=== PATIENT | female | born 1975 | race Caucasian/White ===

== ENCOUNTER 2023-06-30 17:13 | Inpatient (IN) | payer BC ==
[2023-06-30] MEDS ORDERED: HALOPERIDOL LACTATE 5 MG/ML 1 ML VIAL IM PRN (20:23)
[2023-06-30] MEDS ORDERED: LORazepam 2 MG/ML INJ IM PRN (20:23)
[2023-06-30] MEDS: haloperidoL 5 MG TAB PO PRN (20:38)
[2023-06-30] MEDS: LORazepam 1 MG TAB PO PRN (20:38)
[2023-07-01] MEDS: NICOTINE 14MG/24HR PATCH TRANSDERM SCH (08:35)
[2023-07-01] MEDS: MAGNESIUM HYDROXIDE 2,400 MG/30 ML CUP PO PRN (13:29)
[2023-07-01] MEDS: DOCUSATE 100 MG CAP PO SCH (13:41)
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
[2023-07-01] MEDS: PALIPERIDONE 3 MG TAB.ER.24 PO SCH ×2 (14:51→20:46)
[2023-07-01] MEDS: guaiFENesin 600 MG TABLET.ER PO SCH ×2 (14:51→20:45)
[2023-07-01] MEDS: DOXYCYCLINE 100 MG CAP PO SCH ×2 (14:52→20:44)
[2023-07-01] MEDS: MUPIROCIN 2% OINT 22 GM TUBE TOPICAL SCH ×2 (15:19→20:46)
[2023-07-01] MEDS ORDERED: IPRATROPIUM-ALBUTEROL 3 ML NEB INHALATION SCH (16:00)
[2023-07-01] MEDS: ALBUTEROL HFA INHALER INHALATION SCH ×2 (17:19→21:18)
[2023-07-01] MEDS: diphenhydrAMINE 25 MG CAP PO SCH (20:44)
[2023-07-01] MEDS: IBUPROFEN 600 MG TAB PO PRN (20:49)
[2023-07-02] MEDS: ALBUTEROL HFA INHALER INHALATION SCH ×4 (04:48→20:19)
[2023-07-02] MEDS: IBUPROFEN 600 MG TAB PO PRN ×3 (05:03→21:31)
[2023-07-02] MEDS: LORazepam 1 MG TAB PO PRN ×2 (05:03→20:23)
[2023-07-02] MEDS: DOXYCYCLINE 100 MG CAP PO SCH (08:46)
[2023-07-02] MEDS: guaiFENesin 600 MG TABLET.ER PO SCH ×3 (08:46→21:10)
[2023-07-02] MEDS: DOCUSATE 100 MG CAP PO SCH (08:46)
[2023-07-02] MEDS: PALIPERIDONE 3 MG TAB.ER.24 PO SCH ×2 (08:46→20:20)
[2023-07-02] MEDS: NICOTINE 14MG/24HR PATCH TRANSDERM SCH (08:47)
[2023-07-02] MEDS: MUPIROCIN 2% OINT 22 GM TUBE TOPICAL SCH ×3 (08:47→20:20)
[2023-07-02] MEDS: lamoTRIgine 25 MG TAB PO SCH ×2 (11:28→20:20)
[2023-07-02] MEDS: diphenhydrAMINE 25 MG CAP PO PRN ×2 (11:28→18:33)
--- NOTE | 2023-07-02 11:31 | P.PN ---
Progress Note - Text Progress Note Date: 07/02/23 Interval History: Patient was seen [wandering the hallways] and was directable and agreeable to speak with television script writer in the office. [] Patient appeared to be fairly labile and tearful today. She claims that she needs "more Kleenex" due to the crying. States that she is doing a bit better today however was having some visual disturbances this morning. She claims that she has been having some itching over where her infection was and requested Benadryl. States that she slept fairly last night. She is agreeable to continue with the medications. She claims that she didn't take Lamictal in the past and is okay to take it again for mood stabilization. Claims that she is feeling depressed however when asked more about it she made several statements was rambling and bizarre. She appeared fairly poor concentration today and needed to be redirected in conversation several times. At this time patient denies any suicidal or homical ideations, intent or plan. Patient denies any current auditory, visual hallucinations and denies any paranoia or delusions. Patient denies any side effects from the medications and has been compliant with meds. Mental Status Exam: General Appearance: Patient appears to be tall, currently long hair, stated age is alert, directable, and attempts to cooperate. Bizarre at times. Patient appears to have poor hygiene and grooming. Behavior: Patient is seated without any agitated behavior. [place] friendly, bizarre times. tearful Speech: Patient's speech is fluent and nonpressured. Rambles at times. Mood/Affect: Patient reports their mood is "sad", affect is congruent Suicidality/Homicidality: Patient denies having any homicidal ideation intent or plan. Denies any suicidal ideations intent or plan Perceptions: Patient denies any visual hallucinations and denies any auditory hallucinations Though content/process: Rambles at times, tangential, bizarre, not endorsing any delusion or paranoia at this time. Minimal insight. rambles Memory and concentration: AOX3, grossly intact for the purposes of this session Judgment and insight: poor, improving mildly IMPRESSIONS: psychosis NOS, likely schizoaffective vs schizophrenia cannabis use disorder nicotine dependence PLAN: -Patient is admitted under involuntary status to MHU for stabilization of psychiatric symptoms and safety. Patient has not signed adult voluntary form and medication consent and is placed in patient's chart. -Medications : paliperidone by mouth 3 mg twice a day for mood stabilization/psychosis, Benadryl 25 mg daily at bedtime for insomnia. added lamictal 25 mg bid for mood stabilization -Ativan and Haldol PRN for agitation/aggression -NRT - nicotine patch -SW on board for discharge planning. Encourage patient to participate in groups to work on coping skills. continuing to await deferral and court date.
[2023-07-02] MEDS: diphenhydrAMINE 25 MG CAP PO SCH (20:20)
[2023-07-02] MEDS: MAG HYDROX/AL HYDROX/SIMETH 30 ML CUP PO PRN (22:11)
[2023-07-03] MEDS: MUPIROCIN 2% OINT 22 GM TUBE TOPICAL SCH ×3 (06:41→18:45)
[2023-07-03] MEDS: ALBUTEROL HFA INHALER INHALATION SCH ×4 (07:22→19:59)
[2023-07-03] MEDS: diphenhydrAMINE 25 MG CAP PO PRN ×2 (07:24→21:08)
[2023-07-03] MEDS: IBUPROFEN 600 MG TAB PO PRN ×2 (07:28→13:46)
[2023-07-03] MEDS: NICOTINE 14MG/24HR PATCH TRANSDERM SCH (07:44)
[2023-07-03] MEDS: PALIPERIDONE 3 MG TAB.ER.24 PO SCH (07:45)
[2023-07-03] MEDS: lamoTRIgine 25 MG TAB PO SCH ×3 (07:45→20:53)
[2023-07-03] MEDS: DOCUSATE 100 MG CAP PO SCH (07:45)
[2023-07-03] MEDS: guaiFENesin 600 MG TABLET.ER PO SCH ×2 (07:45→20:01)
[2023-07-03] MEDS: LORazepam 1 MG TAB PO PRN ×2 (09:57→21:08)
[2023-07-03] MEDS: haloperidoL 5 MG TAB PO PRN (09:58)
--- NOTE | 2023-07-03 11:40 | P.HPMEDMHU ---
History of Present Illness H&P Date: 07/03/23 Patient is a 38-year-old female with alcohol use disorder, nicotine dependence, borderline personality disorder currently in behavioral health unit. [facility] physicians has been consulted for medical management. Denies any chest pain, shortness of breath, abdominal pain, nausea, vomiting, diarrhea, constipation, or urinary complaints. Pertinent positives and negatives as discussed in HPI, a complete review of systems was performed and all other systems are negative. Patient seen and examined at bedside. Vital signs reviewed General: nontoxic, no distress, appears at stated age Derm: warm, dry Head: atraumatic, normocephalic, symmetric Eyes: EOMI, no lid lag, anicteric sclera, pupils equal round reactive to light ENT: Nose and ears atraumatic Neck: No thyromegaly, supple Mouth: no lip lesion, mucus membranes moist Cardiovascular: S1S2 reg, no murmur, no edema Lungs: clear to auscultation bilateral, no rhonchi, no rales, no wheeze, no accessory muscle use Abdominal: soft, nontender to palpation, no guarding, no appreciable organomegaly Ext: no gross muscle atrophy, muscle strength muscle strength 5 out of 5 in all 4 extremities, no contractures Neuro: CN II-XII grossly intact Psych: Alert, oriented, appropriate affect Assessment/Plan: Alcohol use disorder Nicotine dependence Psychotic disorder -Counseled regarding cessation of alcohol, and nicotine -Rest of the management per psychiatry -No labs available Thank you for allowing us to participate in the care of this pleasant patient. Do not hesitate to contact us with questions. Someone can be reached from the [facility] hospitalist group all hours of the day at [phone] or via [employer] - [place]. Past Medical History Past Medical History: Unable to Obtain Additional Past Medical History / Comment(s): Acute psychosis History of Any Multi-Drug Resistant Organisms: MRSA Date of last positivie culture/infection: 06/30/23 MDRO Source:: Neck wound Past Surgical History: Unable to Obtain Additional Past Surgical History / Comment(s): Acute psychosis Past Anesthesia/Blood Transfusion Reactions: No Reported Reaction Past Psychological History: No Psychological Hx Reported Smoking Status: Current some day smoker Medications and Allergies Allergies Allergy/AdvReac Type Severity Reaction Status Date / Time No Known Allergies Allergy Verified 06/30/23 20:23 Physical Exam Vitals: Vital Signs Temp Pulse Resp BP Pulse Ox 07/03/23 07:12 98.5 F 79 19 106/59 98 Cranial Nerve Examination - Cranial Nerves Cranial Nerve II- Optic: Intact Cranial Nerve III- Oculomotor: Intact Cranial Nerve IV- Trochlear: Intact Cranial Nerve V- Trigeminal: Intact Cranial Nerve - Abducens: Intact Cranial Nerve VII- Facial: Intact Cranial Nerve VIII- Auditory: Intact Cranial Nerve IX- Glossopharyngeal: Intact Cranial Nerve X- Vagus: Intact Cranial Nerve XI- Accessory: Intact Cranial Nerve XII- Hypoglossal: Intact Thrombosis Risk Factor Assmnt - Choose All That Apply Each Factor Represents 1 point: Age 41-60 years, Obesity (BMI >25) Other Risk Factors: No Other congenital or acquired thrombophilia - If yes, enter type in comment: No Thrombosis Risk Factor Assessment Total Risk Factor Score: 2 Thrombosis Risk Factor Assessment Level: Low Risk
--- NOTE | 2023-07-03 14:40 | P.PN ---
Progress Note - Text Progress Note Date: 07/03/23 Interval History: Patient was seen [wandering the hallways] and was directable and agreeable to speak with junior technical writer in the office. [] Vision states that she has been going to groups however was fairly vague about what she is learning. She appeared to be less labile today during conversation, answered questions mildly more appropriately however was still bizarre in some of her responses. She is denying any more visual hallucinations or any other hallucinations. States that she slept fairly last night. She is agreeable to continue with the medications and asked more questions about her medications and side effects. she made several statements was rambling and bizarre however was mildly more directable today. She appeared fairly improving concentration today. At this time patient denies any suicidal or homical ideations, intent or plan. Patient denies any current auditory, visual hallucinations and denies any paranoia or delusions. Patient denies any side effects from the medications and has been compliant with meds. Mental Status Exam: General Appearance: Patient appears to be tall, currently long hair, stated age is alert, directable, and attempts to cooperate. Bizarre at times. Patient appears to have poor hygiene and grooming. Behavior: Patient is seated without any agitated behavior. [place] friendly, bizarre times. Improving mildly Speech: Patient's speech is fluent and nonpressured. Rambles less Mood/Affect: Patient reports their mood is "ok", affect is congruent Suicidality/Homicidality: Patient denies having any homicidal ideation intent or plan. Denies any suicidal ideations intent or plan Perceptions: Patient denies any visual hallucinations and denies any auditory hallucinations Though content/process:tangential, bizarre, not endorsing any delusion or paranoia at this time. Minimal insight. rambles, improving mildly Memory and concentration: AOX3, grossly intact for the purposes of this session Judgment and insight: poor, improving mildly IMPRESSIONS: psychosis NOS, likely schizoaffective vs schizophrenia cannabis use disorder nicotine dependence PLAN: -Patient is admitted under involuntary status to MHU for stabilization of psychiatric symptoms and safety. Patient has not signed adult voluntary form and medication consent and is placed in patient's chart. -Medications : increase paliperidone by mouth 3 mg QHS + 6 mg daily for mood stabilization/psychosis, Benadryl 25 mg daily at bedtime for insomnia. increase lamictal 25 mg tid for mood stabilization and continue increasing over the weekend if tolerated and needed. -Ativan and Haldol PRN for agitation/aggression -NRT - nicotine patch -SW on board for discharge planning. Encourage patient to participate in groups to work on coping skills. continuing to await deferral, court date set for next thursday. hopeful for discharge early next week if patient signs deferral and is agreeable to continue on with treatment.
[2023-07-03] MEDS: MAGNESIUM HYDROXIDE 2,400 MG/30 ML CUP PO PRN (18:48)
[2023-07-03] MEDS: diphenhydrAMINE 25 MG CAP PO SCH (20:00)
[2023-07-03] MEDS: PALIPERIDONE 6 MG TAB.ER.24 PO SCH (20:02)
[2023-07-04] MEDS: DOCUSATE 100 MG CAP PO SCH (07:56)
[2023-07-04] MEDS: NICOTINE 14MG/24HR PATCH TRANSDERM SCH (07:56)
[2023-07-04] MEDS: lamoTRIgine 25 MG TAB PO SCH ×3 (07:56→21:26)
[2023-07-04] MEDS: PALIPERIDONE 3 MG TAB.ER.24 PO SCH (07:56)
[2023-07-04] MEDS: guaiFENesin 600 MG TABLET.ER PO SCH ×2 (07:56→20:11)
[2023-07-04] MEDS: ALBUTEROL HFA INHALER INHALATION SCH ×4 (07:57→21:25)
[2023-07-04] MEDS: IBUPROFEN 600 MG TAB PO PRN ×2 (08:46→14:32)
[2023-07-04] MEDS: MAGNESIUM HYDROXIDE 2,400 MG/30 ML CUP PO PRN (08:48)
[2023-07-04] MEDS: MUPIROCIN 2% OINT 22 GM TUBE TOPICAL SCH ×3 (09:33→21:26)
[2023-07-04] MEDS: diphenhydrAMINE 25 MG CAP PO PRN ×2 (11:40→16:12)
[2023-07-04] MEDS: LORazepam 1 MG TAB PO PRN ×2 (12:19→20:13)
--- NOTE | 2023-07-04 18:48 | P.PN ---
Progress Note - Text Progress Note Date: 07/04/23 Interval history: Patient was seen isolating to her room and was directable and agreeable to speak with investigative writer. She denies rash from Lamictal. She reports good mood, sleep and appetite. At this time patient denies any suicidal or homicidal ideations intent or plan. Denies any auditory or visual hallucinations. Patient denies any side effects from the medications and has been compliant with meds. Mental status exam: General Appearance: Patient appears to be stated age is alert, directable, and cooperative. Behavior: No agitated behavior. Patient is calm and directable Speech: Patient's speech is fluent and non-pressured. Mood/Affect: Mood is improving mildly, affect is congruent and constricted. Suicidality/Homicidality: Patient denies having any suicidal or homicidal ideation intent or plan. Perceptions: Patient denies any auditory or visual hallucinations. Though content/process: There is no evidence of any delusional thought content and thought process is linear and goal-directed. Memory and concentration: AOX3, grossly intact for the purposes of this session Judgment and insight: improving mildly Assessment/Plan: Continue with current diagnosis. Patient continues to meet criteria for inpatient psychiatric admission for symptom stabilization and safety. Patient will be maintained on current psychotropic medication regimen. Monitor for medication compliance and for any psychotropic medication side effects. Will continue to monitor ongoing response to treatment. Encouraged participation in milieu.
[2023-07-04] MEDS: diphenhydrAMINE 25 MG CAP PO SCH (20:14)
[2023-07-04] MEDS: PALIPERIDONE 6 MG TAB.ER.24 PO SCH (20:14)
[2023-07-04] MEDS: ACETAMINOPHEN TAB 325 MG TAB PO PRN (21:36)
[2023-07-04] MEDS: MAG HYDROX/AL HYDROX/SIMETH 30 ML CUP PO PRN (21:37)
[2023-07-04] MEDS: haloperidoL 5 MG TAB PO PRN (21:37)
[2023-07-05] MEDS: LORazepam 1 MG TAB PO PRN ×3 (01:16→21:56)
[2023-07-05] MEDS: ALBUTEROL HFA INHALER INHALATION SCH ×4 (07:55→21:24)
[2023-07-05] MEDS: NICOTINE 14MG/24HR PATCH TRANSDERM SCH (07:55)
[2023-07-05] MEDS: PALIPERIDONE 3 MG TAB.ER.24 PO SCH (07:56)
[2023-07-05] MEDS: guaiFENesin 600 MG TABLET.ER PO SCH ×2 (07:56→21:23)
[2023-07-05] MEDS: MUPIROCIN 2% OINT 22 GM TUBE TOPICAL SCH ×3 (07:56→22:35)
[2023-07-05] MEDS: DOCUSATE 100 MG CAP PO SCH (07:56)
[2023-07-05] MEDS: lamoTRIgine 25 MG TAB PO SCH ×3 (07:56→21:23)
[2023-07-05] MEDS: diphenhydrAMINE 25 MG CAP PO PRN ×3 (09:02→21:23)
[2023-07-05] MEDS: IBUPROFEN 600 MG TAB PO PRN ×2 (13:54→22:43)
[2023-07-05] MEDS: MAGNESIUM HYDROXIDE 2,400 MG/30 ML CUP PO PRN (13:55)
[2023-07-05] MEDS: ACETAMINOPHEN TAB 325 MG TAB PO PRN (16:31)
--- NOTE | 2023-07-05 19:40 | P.PN ---
Progress Note - Text Progress Note Date: 07/05/23 Interval history: Patient was seen socializing with peer in the lounge, then later isolating to her room, and was directable and agreeable to speak with investment underwriter. She denies rash from Lamictal. She reports good mood, sleep and appetite. At this time patient denies any suicidal or homicidal ideation, intent or plan. Denies any auditory or visual hallucinations. Patient denies any side effects from the medications and has been compliant with meds. Mental status exam: General Appearance: Patient appears to be stated age is alert, directable, and cooperative. Behavior: No agitated behavior. Patient is calm and directable Speech: Patient's speech is fluent and non-pressured. Mood/Affect: Mood is improving, affect is bright and reactive. Suicidality/Homicidality: Patient denies having any suicidal or homicidal ideation intent or plan. Perceptions: Patient denies any auditory or visual hallucinations. Though content/process: There is no evidence of any delusional thought content and thought process is linear and goal-directed. Memory and concentration: AOX3, grossly intact for the purposes of this session Judgment and insight: improving mildly Assessment/Plan: Continue with current diagnosis. Patient continues to meet criteria for inpatient psychiatric admission for symptom stabilization and safety. Patient will be maintained on current psychotropic medication regimen. Monitor for medication compliance and for any psychotropic medication side effe cts. Will continue to monitor ongoing response to treatment. Encouraged participation in milieu. Per Dr. Rodriguez's note, patient is awaiting court deferral, court date set for Thursday.
[2023-07-05] MEDS: PALIPERIDONE 6 MG TAB.ER.24 PO SCH (21:23)
[2023-07-05] MEDS: diphenhydrAMINE 25 MG CAP PO SCH (21:26)
[2023-07-06] MEDS: PALIPERIDONE 3 MG TAB.ER.24 PO SCH ×2 (08:23→20:08)
[2023-07-06] MEDS: DOCUSATE 100 MG CAP PO SCH (08:23)
[2023-07-06] MEDS: lamoTRIgine 25 MG TAB PO SCH ×3 (08:23→20:08)
[2023-07-06] MEDS: NICOTINE 14MG/24HR PATCH TRANSDERM SCH (08:23)
[2023-07-06] MEDS: guaiFENesin 600 MG TABLET.ER PO SCH ×2 (08:23→20:07)
[2023-07-06] MEDS: MUPIROCIN 2% OINT 22 GM TUBE TOPICAL SCH ×3 (08:24→20:09)
[2023-07-06] MEDS: ALBUTEROL HFA INHALER INHALATION SCH ×4 (08:24→20:06)
[2023-07-06] MEDS: diphenhydrAMINE 25 MG CAP PO PRN ×4 (08:46→23:25)
[2023-07-06] MEDS: IBUPROFEN 600 MG TAB PO PRN ×3 (08:46→21:13)
[2023-07-06] MEDS: ACETAMINOPHEN TAB 325 MG TAB PO PRN (10:37)
--- NOTE | 2023-07-06 14:14 | P.PN ---
Progress Note - Text Progress Note Date: 07/06/23 Interval history: Patient was seen isolating in her room, talking to herself, is agreeable to speak with this selling underwriter. Her affect is bright but odd. She claims she is feeling "on point", however with further discussion she appears to ramble with loose associations. She states "It's an emergency, I have to save my own life" and flips to paper about patient rights, but is not able to elaborate on what she means. She admits she talks to herself "alot", states she does this because she has kids, dialogue becomes nonsensical. She denies rash from Lamictal. She reports good mood, and appetite. She reports difficulty sleeping last night and so she took an Ativan 1mg po. At this time patient denies any suicidal or homicidal ideation, intent or plan. Denies any auditory or visual hallucinations, but appears to be attending to internal stimuli at times. Patient denies any side effects from the medications and has been compliant with meds. Mental status exam: General Appearance: Patient appears to be stated age is alert, directable, and cooperative. Behavior: No agitated behavior. Patient is calm and directable Speech: Patient's speech is fluent and non-pressured. Mood/Affect: Mood is improving, affect is bright but odd. Suicidality/Homicidality: Patient denies having any suicidal or homicidal ideation intent or plan. Perceptions: Patient denies any auditory or visual hallucinations, but appears to attend to internal stimuli. Though content/process: There is no evidence of any overt delusional thought content and thought process is rambling and nonsensical at times today. Memory and concentration: AOX3, grossly intact for the purposes of this session Judgment and insight: improving mildly Assessment/Plan: Continue with current diagnosis. Patient continues to meet criteria for inpatient psychiatric admission for symptom stabilization and safety. Increase Invega from 3 mg daily and 6 mg QHS, to 3 mg daily in the morning and 9 mg QHS for psychosis/mood stabilization. She would benefit from long-acting injectable Invega Sustenna. Continue gradual titration of Lamictal 25 mg TID to minimize risk of SJS. Monitor for medication compliance and for any psychotropic medication side effects. Will continue to monitor ongoing response to treatment. Encouraged participation in milieu. Per Dr. Rodriguez's note, patient is awaiting court deferral, court date set for Thursday.
[2023-07-06] MEDS: MAG HYDROX/AL HYDROX/SIMETH 30 ML CUP PO PRN (14:34)
[2023-07-06] MEDS: MAGNESIUM HYDROXIDE 2,400 MG/30 ML CUP PO PRN (16:22)
[2023-07-06] MEDS: diphenhydrAMINE 25 MG CAP PO SCH (20:08)
[2023-07-06] MEDS: LORazepam 1 MG TAB PO PRN (21:13)
[2023-07-07] MEDS: NICOTINE 14MG/24HR PATCH TRANSDERM SCH (07:40)
[2023-07-07] MEDS: lamoTRIgine 25 MG TAB PO SCH ×3 (07:40→20:36)
[2023-07-07] MEDS: guaiFENesin 600 MG TABLET.ER PO SCH ×2 (07:40→20:35)
[2023-07-07] MEDS: ALBUTEROL HFA INHALER INHALATION SCH ×4 (07:41→20:33)
[2023-07-07] MEDS: PALIPERIDONE 3 MG TAB.ER.24 PO SCH ×2 (07:43→20:36)
[2023-07-07] MEDS: MUPIROCIN 2% OINT 22 GM TUBE TOPICAL SCH ×3 (08:42→20:38)
[2023-07-07] MEDS: diphenhydrAMINE 25 MG CAP PO PRN ×2 (08:43→14:51)
[2023-07-07] MEDS: DOCUSATE 100 MG CAP PO SCH (08:50)
[2023-07-07] MEDS: MAG HYDROX/AL HYDROX/SIMETH 30 ML CUP PO PRN (09:18)
--- NOTE | 2023-07-07 15:17 | P.PN ---
Progress Note - Text Progress Note Date: 07/07/23 Interval history: Patient was seen walking in the hallways and is agreeable to speak with this securities underwriter. She is still displaying some signs of indira. Her affect is bright and a bit odd. Her thought process is improving slightly however she continues to change topics frequently with flight of ideas. She reports feeling better on the higher dose of Invega today, however she only slept one hour last night, appears anxious about her upcoming court date tomorrow. She denies rash from Lamictal but reports she has had a rash from Lamictal in the past so this will need to be titrated slowly. At this time patient denies any suicidal or homicidal ideation, intent or plan. Denies any auditory or visual hallucinations, but admits to talking to herself at times. Patient denies any side effects from the medications. Mental status exam: General Appearance: Patient appears to be stated age, is showered and dressed appropriately. Behavior: No agitated behavior. Patient presents as smiling and calm, but still has signs and symptoms of indira including insomnia. Speech: Patient's speech is fluent and non-pressured. Mood/Affect: Mood is improving, affect is bright but odd. Suicidality/Homicidality: Patient denies having any suicidal or homicidal ideation intent or plan. Perceptions: Patient denies any auditory or visual hallucinations, but appears to talk to herself. Though content/process: There is no evidence of any overt delusional thought content and thought process has flight of ideas with frequent change of topics. Memory and concentration: AOX3, grossly intact for the purposes of this session Judgment and insight: limited Assessment/Plan: Continue with current diagnosis. Patient continues to meet criteria for inpatient psychiatric admission for symptom stabilization and safety. Continue Invega 3 mg daily in the morning and 9 mg QHS for psychosis/mood stabilization. She would benefit from long-acting injectable Invega Sustenna. She may benefit from a second antipsychotic or mood stabilizer for mood stabilization however she prefers to not add any additional medications at this time. Continue gradual titration of Lamictal 25 mg TID to minimize risk of SJS. She reports a history of rash on Lamictal in the past so will titrate this slowly. Monitor for medication compliance and for any psychotropic medication side effects. Will continue to monitor ongoing response to treatment. Encouraged participation in milieu. Per Dr. Rodriguez's note, patient is awaiting court deferral, court date set for Thursday.
[2023-07-07] MEDS: IBUPROFEN 600 MG TAB PO PRN (20:35)
[2023-07-07] MEDS: diphenhydrAMINE 25 MG CAP PO SCH (20:36)
[2023-07-07] MEDS: LORazepam 1 MG TAB PO PRN (20:37)
[2023-07-08] MEDS: diphenhydrAMINE 25 MG CAP PO PRN ×2 (01:37→11:51)
[2023-07-08] MEDS: IBUPROFEN 600 MG TAB PO PRN ×2 (06:39→11:52)
[2023-07-08] MEDS: ALBUTEROL HFA INHALER INHALATION SCH ×4 (08:29→21:31)
[2023-07-08] MEDS: PALIPERIDONE 3 MG TAB.ER.24 PO SCH ×2 (08:30→21:33)
[2023-07-08] MEDS: guaiFENesin 600 MG TABLET.ER PO SCH ×2 (08:30→21:31)
[2023-07-08] MEDS: MUPIROCIN 2% OINT 22 GM TUBE TOPICAL SCH ×3 (08:30→21:33)
[2023-07-08] MEDS: lamoTRIgine 25 MG TAB PO SCH ×2 (08:30→21:32)
[2023-07-08] MEDS: NICOTINE 14MG/24HR PATCH TRANSDERM SCH (08:31)
[2023-07-08] MEDS: DOCUSATE 100 MG CAP PO SCH (08:38)
[2023-07-08] MEDS: ACETAMINOPHEN TAB 325 MG TAB PO PRN (13:38)
[2023-07-08] MEDS ORDERED: OLANZapine ODT 5 MG TAB PO STA (13:42)
--- NOTE | 2023-07-08 15:56 | P.PN ---
Progress Note - Text Progress Note Date: 07/08/23 Interval history: Patient was seen at the medication window sobbing, with labile affect, and is agreeable to speak with this telegraphic typewriter operator chief. She is still displaying some signs of indira. Her affect is labile, she has good energy despite sleeping only 2 hours last night (per nursing report). Her thought process is improving but she continues to be somewhat disorganized in her thoughts. She has court this morning and was placed on a court order. Her insight remains limited. At this time patient denies any suicidal or homicidal ideation, intent or plan. Denies any auditory or visual hallucinations. Patient denies any side effects from the medications. She denies rash from Lamictal. She was offered a Zyprexa Zydis 5 mg x 1 now but declined. She reports she had previously done well on Lamictal, Cymbalta and Zyprexa. Mental status exam: General Appearance: Patient appears to be stated age, is showered and dressed appropriately. Behavior: No agitated behavior. Patient is standing at the medication window and is sobbing. Speech: Patient's speech is fluent and non-pressured. Mood/Affect: Mood is sad, affect is labile, sobbing. Suicidality/Homicidality: Patient denies having any suicidal or homicidal ideation intent or plan. Perceptions: Patient denies any auditory or visual hallucinations. Though content/process: There is no evidence of any overt delusional thought content and thought process is still somewhat disorganized. Memory and concentration: AOX3, grossly intact for the purposes of this session Judgment and insight: limited Assessment/Plan: Continue with current diagnosis. Patient continues to meet criteria for inpatient psychiatric admission for symptom stabilization and safety. Patient is on court order. Continue Invega 3 mg daily in the morning and 9 mg QHS for psychosis/mood stabilization. She would benefit from long-acting injectable Invega Sustenna. Start Zyprexa 5 mg QHS for mood stabilization. Increase Lamictal to 50 mg BID for mood starting tonight. Monitor for medication compliance and for any psychotropic medication side effec ts. Will continue to monitor ongoing response to treatment. Encouraged participation in milieu.
[2023-07-08] MEDS ORDERED: OLANZapine 5 MG TAB PO SCH (21:00)
[2023-07-08] MEDS: diphenhydrAMINE 25 MG CAP PO SCH (21:31)
[2023-07-08] MEDS: LORazepam 1 MG TAB PO PRN (23:26)
[2023-07-09] MEDS: IBUPROFEN 600 MG TAB PO PRN ×3 (03:40→22:29)
[2023-07-09] MEDS: diphenhydrAMINE 25 MG CAP PO PRN (06:34)
[2023-07-09] MEDS: ACETAMINOPHEN TAB 325 MG TAB PO PRN (06:34)
[2023-07-09] MEDS: NICOTINE 14MG/24HR PATCH TRANSDERM SCH (06:37)
[2023-07-09] MEDS: lamoTRIgine 25 MG TAB PO SCH ×3 (08:26→20:07)
[2023-07-09] MEDS: MUPIROCIN 2% OINT 22 GM TUBE TOPICAL SCH ×3 (08:27→20:18)
[2023-07-09] MEDS: PALIPERIDONE 3 MG TAB.ER.24 PO SCH (08:27)
[2023-07-09] MEDS: ALBUTEROL HFA INHALER INHALATION SCH ×4 (08:27→20:13)
[2023-07-09] MEDS: guaiFENesin 600 MG TABLET.ER PO SCH ×2 (08:33→20:07)
[2023-07-09] MEDS: DOCUSATE 100 MG CAP PO SCH (08:33)
[2023-07-09] MEDS ORDERED: traZODone HCL 50 MG TAB PO PRN (09:31)
--- NOTE | 2023-07-09 09:41 | P.PN ---
Progress Note - Text Progress Note Date: 07/09/23 Interval History: Patient was seen [wandering the hallways] and was near the nurse's desk and was directable and agreeable to speak with financial underwriter in the office. patient was fairly talkative today, and fairly tangential/circumstantial. She was speaking about her interaction with other patients and going to groups. She was difficult to redirect and interrupt. She appeared to have fairly poor judgment and understanding of her treatment. She apologized for "acting weird in court". She knows now that she is on a court order. States that she slept poorly last night. She is agreeable to continue on with treatment and medication changes. States that her appetite is fair. She has been showering and hygiene and grooming are improving. Continues to be fairly bizarre. At this time patient denies any suicidal or homical ideations, intent or plan. Patient denies any current auditory, visual hallucinations and denies any paranoia or delusions. Patient denies any side effects from the medications and has been compliant with meds. Mental Status Exam: General Appearance: Patient appears to be tall, currently long hair, stated age is alert, directable, and attempts to cooperate. Bizarre at times. Patient appears to have improving hygiene and grooming. Behavior: Patient is seated without any agitated behavior. bizarre at times. directable Speech: Patient's speech is fluent and nonpressured. Rambles Mood/Affect: Patient reports their mood is "fine", affect is congruent Suicidality/Homicidality: Patient denies having any homicidal ideation intent or plan. Denies any suicidal ideations intent or plan Perceptions: Patient denies any visual hallucinations and denies any auditory hallucinations Though content/process:tangential, bizarre, not endorsing any delusion or paranoia at this time. Minimal insight. rambles, improving mildly Memory and concentration: AOX3, grossly intact for the purposes of this session Judgment and insight: poor, improving mildly IMPRESSIONS: Schizoaffective disorder bipolar type cannabis use disorder nicotine dependence PLAN: -Patient is admitted under involuntary status to MHU for stabilization of psychiatric symptoms and safety. Patient has not signed adult voluntary form and medication consent and is placed in patient's chart. -Medications : change paliperidone by mouth 6 mg BID for mood stabilization/psychosis, d/c Benadryl and replace with trazodone 50 mg qhs for insomnia/mood with prn option. increase lamictal 50 mg tid for mood stabilization and continue titrating as tolerated -Ativan and Haldol PRN for agitation/aggression -NRT - nicotine patch -SW on board for discharge planning. Encourage patient to participate in groups to work on coping skills. patient is now court ordered for mental health treatment. hopeful for discharge early next week if patient signs deferral and is agreeable to continue on with treatment.
[2023-07-09] MEDS: PALIPERIDONE 6 MG TAB.ER.24 PO SCH (20:07)
[2023-07-09] MEDS ORDERED: traZODone HCL 50 MG TAB PO SCH (21:00)
[2023-07-09] MEDS: LORazepam 1 MG TAB PO PRN (21:31)
[2023-07-10] MEDS: ACETAMINOPHEN TAB 325 MG TAB PO PRN ×3 (01:29→20:26)
[2023-07-10] MEDS: diphenhydrAMINE 25 MG CAP PO PRN (01:32)
[2023-07-10] MEDS: NICOTINE 14MG/24HR PATCH TRANSDERM SCH (07:19)
[2023-07-10] MEDS: ALBUTEROL HFA INHALER INHALATION SCH ×4 (08:06→20:26)
[2023-07-10] MEDS: guaiFENesin 600 MG TABLET.ER PO SCH ×2 (08:07→20:25)
[2023-07-10] MEDS: DOCUSATE 100 MG CAP PO SCH (08:07)
[2023-07-10] MEDS: lamoTRIgine 25 MG TAB PO SCH ×3 (08:07→20:24)
[2023-07-10] MEDS: PALIPERIDONE 6 MG TAB.ER.24 PO SCH ×2 (08:07→20:24)
[2023-07-10] MEDS: MUPIROCIN 2% OINT 22 GM TUBE TOPICAL SCH ×3 (08:43→20:27)
[2023-07-10 10:10] VITALS: BMI 30.1
--- NOTE | 2023-07-10 10:38 | P.PN ---
Progress Note - Text Progress Note Date: 07/10/23 Interval History: Patient was seen sitting in a group this morning and was near the nurse's desk and was directable and agreeable to speak with freelance copywriter in the office. patient was fairly talkative today however improving since yesterday and is more appropriate during interaction. We spoke about her diagnosis and being a chronic condition and patient began crying. She asked about how long she needs to be on the medication then her hospital stay, we discussed her treatment. She asked appropriate questions. She again was fairly friendly with the freelance copywriter today. She continues to be somewhat difficult to redirect at times and has a mildly improving insight and judgment. She claims that she did not sleep well last night and needed Ativan. We talked about increasing her medications over the weekend which she is okay with. States that her appetite is fair. She has been showering and hygiene and grooming are improving. At this time patient denies any suicidal or homical ideations, intent or plan. Patient denies any current auditory, visual hallucinations and denies any paranoia or delusions. Patient denies any side effects from the medications and has been compliant with meds. Mental Status Exam: General Appearance: Patient appears to be tall, currently long hair, stated age is alert, directable, and attempts to cooperate. less Bizarre today. Patient appears to have improving hygiene and grooming. Behavior: Patient is seated without any agitated behavior. more directable Speech: Patient's speech is fluent and nonpressured. Rambles Mood/Affect: Patient reports their mood is "better", affect is congruent and improving Suicidality/Homicidality: Patient denies having any homicidal ideation intent or plan. Denies any suicidal ideations intent or plan Perceptions: Patient denies any visual hallucinations and denies any auditory hallucinations Though content/process:tangential, not endorsing any delusion or paranoia at this time. Minimal insight. rambles, improving mildly Memory and concentration: AOX3, grossly intact for the purposes of this session Judgment and insight: poor, improving mildly IMPRESSIONS: Schizoaffective disorder bipolar type cannabis use disorder nicotine dependence PLAN: -Patient is admitted under involuntary status to MHU for stabilization of psychiatric symptoms and safety. Patient has not signed adult voluntary form and medication consent and is placed in patient's chart. -Medications : paliperidone by mouth 6 mg BID for mood stabilization/psychosis, increase trazodone 100 mg qhs for insomnia/mood with prn option. increase lamictal to 100 mg bid for mood stabilization by thursday, continue monitoring for a rash or any a/e. -Ativan and Haldol PRN for agitation/aggression -NRT - nicotine patch -SW on board for discharge planning. Encourage patient to participate in groups to work on coping skills. patient is now court ordered for mental health treatment. hopeful for discharge early next week if she continues to improve.
[2023-07-10] MEDS: IBUPROFEN 600 MG TAB PO PRN (16:45)
[2023-07-10] MEDS: traZODone HCL 100 MG TAB PO SCH (20:24)
[2023-07-11] MEDS: guaiFENesin 600 MG TABLET.ER PO SCH ×2 (08:33→21:02)
[2023-07-11] MEDS: DOCUSATE 100 MG CAP PO SCH (08:33)
[2023-07-11] MEDS: NICOTINE 14MG/24HR PATCH TRANSDERM SCH (08:33)
[2023-07-11] MEDS: lamoTRIgine 25 MG TAB PO SCH ×3 (08:34→21:01)
[2023-07-11] MEDS: PALIPERIDONE 6 MG TAB.ER.24 PO SCH ×2 (08:34→21:01)
[2023-07-11] MEDS: MUPIROCIN 2% OINT 22 GM TUBE TOPICAL SCH ×3 (08:34→21:03)
[2023-07-11] MEDS: ALBUTEROL HFA INHALER INHALATION SCH ×4 (08:35→21:02)
[2023-07-11] MEDS: NICOTINE 7MG/24HR PATCH TRANSDERM SCH (09:11)
[2023-07-11] MEDS: IBUPROFEN 600 MG TAB PO PRN ×2 (11:00→21:54)
[2023-07-11] MEDS: ACETAMINOPHEN TAB 325 MG TAB PO PRN (13:20)
--- NOTE | 2023-07-11 13:45 | P.PN ---
Subjective Progress Note Date: 07/11/23 Principal diagnosis: IMPRESSIONS: Schizoaffective disorder bipolar type cannabis use disorder nicotine dependence Patient Name: Annelise Carmona Date of : 73 Patient Status: Inpatient Attending Provider: Toribio Rodriguez Date: 07/11/23 Follow-up care by Flex Serrato M.D. Interval History: Patient was seen in her room and agreeable to speak with marketing copywriter Patient seemed to be focused on her daughter who she claims has a heroin problem and patient began crying. Patient also appears to have difficulty with concentration and seemed to be easily distracted At this time patient denies any suicidal or homical ideations, intent or plan. Patient denies any current auditory, visual hallucinations and denies any paranoia or delusions. Patient denies any side effects from the medications and has been compliant with meds. Mental Status Exam: General Appearance: Patient appears to be tall, currently long hair, stated age is alert, directable, and attempts to cooperate. Patient appears to have improving hygiene and grooming. Behavior: Patient is seated without any agitated behavior. Easily distracted and has to be redirected frequently Speech: Patient's speech is fluent and nonpressured. Rambles Mood/Affect: Patient reports their mood is "better", affect is congruent Suicidality/Homicidality: Patient denies having any homicidal ideation intent or plan. Denies any suicidal ideations intent or plan Perceptions: Patient denies any visual hallucinations and denies any auditory hallucinations Though content/process:tangential, not endorsing any delusion or paranoia at this time. Minimal insight. rambles, improving mildly Memory and concentration: AOX3, grossly intact for the purposes of this session Judgment and insight: poor, improving mildly IMPRESSIONS: Schizoaffective disorder bipolar type cannabis use disorder nicotine dependence PLAN: -Patient is admitted under involuntary status to MHU for stabilization of psychiatric symptoms and safety. Patient has not signed adult voluntary form and medication consent and is placed in patient's chart. -Medications : paliperidone by mouth 6 mg BID for mood stabilization/psychosis, trazodone 100 mg qhs for insomnia/mood with prn option. lamictal to 100 mg bid for mood stabilization by thursday, continue monitoring for a rash or any a/e. -Ativan and Haldol PRN for agitation/aggression -NRT - nicotine patch -SW on board for discharge planning. Encourage patient to participate in groups to work on coping skills. patient is now court ordered for mental health treatment. hopeful for discharge early next week if she continues to improve. Flex Serrato M.D. 07/11/2023 Objective - Vital Signs Vital signs: Vital Signs Temp 97.8 F 07/10/23 05:00 Pulse 91 07/10/23 05:00 Resp 18 07/10/23 05:00 BP 106/65 07/10/23 05:00 Pulse Ox 97 07/10/23 05:00 FiO2 Intake & Output 07/10/23 07/11/23 07/11/23 18:59 06:59 18:59 Weight 87.271 kg
[2023-07-11] MEDS: traZODone HCL 100 MG TAB PO SCH (21:02)
[2023-07-12 06:25] VITALS: BP 127/71; PULSE 99; RESP 16; TEMP 98.2
[2023-07-12] MEDS: MUPIROCIN 2% OINT 22 GM TUBE TOPICAL SCH ×3 (08:03→19:42)
[2023-07-12] MEDS: PALIPERIDONE 6 MG TAB.ER.24 PO SCH ×2 (08:12→19:41)
[2023-07-12] MEDS: NICOTINE 14MG/24HR PATCH TRANSDERM SCH (08:12)
[2023-07-12] MEDS: guaiFENesin 600 MG TABLET.ER PO SCH ×2 (08:12→19:42)
[2023-07-12] MEDS: DOCUSATE 100 MG CAP PO SCH (08:12)
[2023-07-12] MEDS: ALBUTEROL HFA INHALER INHALATION SCH ×4 (08:12→19:41)
[2023-07-12] MEDS: lamoTRIgine 100 MG TAB PO SCH ×2 (08:12→19:42)
[2023-07-12] MEDS: NICOTINE 7MG/24HR PATCH TRANSDERM SCH (08:13)
[2023-07-12] MEDS: ACETAMINOPHEN TAB 325 MG TAB PO PRN ×2 (09:19→15:17)
[2023-07-12] MEDS: MAG HYDROX/AL HYDROX/SIMETH 30 ML CUP PO PRN (10:08)
--- NOTE | 2023-07-12 10:09 | P.PN ---
Subjective Progress Note Date: 07/12/23 Principal diagnosis: IMPRESSIONS: Schizoaffective disorder bipolar type cannabis use disorder nicotine dependence Patient Name: Annelise Carmona Date of : 73 Patient Status: Inpatient Attending Provider: Toribio Rodriguez Date: 07/12/23 Follow-up care by Flex Serrato M.D. Interval History: The patient was seen while walking in the hallway She was appropriately dressed and groomed and was cooperative She said that she is doing much better However she immediately became labile and tearful without any specific discussion Moods remains labile Patient denies any current auditory, visual hallucinations and denies any paranoia or delusions. Patient denies any side effects from the medications and has been compliant with meds. Mental Status Exam: General Appearance: Patient appears to be tall, currently long hair, stated age is alert, directable, and attempts to cooperate. Patient appears to have improving hygiene and grooming. Behavior: Patient is seated without any agitated behavior. Easily distracted and has to be redirected frequently Speech: Patient's speech is fluent and nonpressured. Rambles Mood/Affect: Mood remains labile Suicidality/Homicidality: Patient denies having any homicidal ideation intent or plan. Denies any suicidal ideations intent or plan Perceptions: Patient denies any visual hallucinations and denies any auditory hallucinations Though content/process:tangential, not endorsing any delusion or paranoia at this time. Minimal insight. rambles, improving mildly Memory and concentration: AOX3, grossly intact for the purposes of this session Judgment and insight: poor, improving mildly IMPRESSIONS: Schizoaffective disorder bipolar type cannabis use disorder nicotine dependence PLAN: -Patient is admitted under involuntary status to MHU for stabilization of psychiatric symptoms and safety. Patient has not signed adult voluntary form and medication consent and is placed in patient's chart. -Medications : paliperidone by mouth 6 mg BID for mood stabilization/psychosis, trazodone 100 mg qhs for insomnia/mood with prn option. lamictal to 100 mg bid for mood stabilization by thursday, continue monitoring for a rash or any a/e. -Ativan and Haldol PRN for agitation/aggression -NRT - nicotine patch -SW on board for discharge planning. Encourage patient to participate in groups to work on coping skills. patient is now court ordered for mental health treatment. hopeful for discharge early next week if she continues to improve. Flex Serrato M.D. 07/12/2023 Objective - Vital Signs Vital signs: Vital Signs Temp 98.2 F 07/12/23 06:24 Pulse 99 07/12/23 06:24 Resp 16 07/12/23 06:24 BP 127/71 07/12/23 06:24 Pulse Ox 99 07/12/23 06:24 FiO2
[2023-07-12] MEDS: traZODone HCL 100 MG TAB PO SCH (19:41)
[2023-07-13] MEDS: PALIPERIDONE 6 MG TAB.ER.24 PO SCH (08:37)
[2023-07-13] MEDS: lamoTRIgine 100 MG TAB PO SCH (08:37)
[2023-07-13] MEDS: ALBUTEROL HFA INHALER INHALATION SCH ×2 (08:37→12:07)
[2023-07-13] MEDS: guaiFENesin 600 MG TABLET.ER PO SCH (08:37)
[2023-07-13] MEDS: DOCUSATE 100 MG CAP PO SCH (08:37)
[2023-07-13] MEDS: NICOTINE 14MG/24HR PATCH TRANSDERM SCH (08:37)
[2023-07-13] MEDS: MUPIROCIN 2% OINT 22 GM TUBE TOPICAL SCH (08:38)
[2023-07-13] MEDS: IBUPROFEN 600 MG TAB PO PRN (10:06)
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
== END 2023-07-13 13:48 | disposition home or self-care (01) | DRG 885 ==
LOC: 3MHU 19:00
PROVIDERS: ADMIT Psychiatry & Neurology Psychiatry; ATTEND Psychiatry & Neurology Psychiatry
DX: F25.0 Schizoaffective disorder, bipolar type (principal); F12.10 Cannabis abuse, uncomplicated; F41.9 Anxiety disorder, unspecified; G47.00 Insomnia, unspecified; F17.200 Nicotine dependence, unspecified, uncomplicated; Z28.310 Unvaccinated for COVID-19; Z71.6 Tobacco abuse counseling; Z56.0 Unemployment, unspecified; Z86.14 Personal history of Methicillin resistant Staphylococcus aureus infection; Z71.41 Alcohol abuse counseling and surveillance of alcoholic; Z71.51 Drug abuse counseling and surveillance of drug abuser